=== PATIENT | female | born 1965 | race Caucasian/White ===

== ENCOUNTER → 2017-09-27 | Outpatient (CLI) | payer OTHER ==
--- NOTE | 2017-09-27 14:47 | RADIOLOGY REPORT (SQ) ---
EXAM DESCRIPTION: L SPINE FLEX/EXT ONLY COMPLETED DATE/TIME: 09/27/2017 2:20 pm REASON FOR STUDY: RADICULOPATHY, LUMBAR REGION M54.16 RADICULOPATHY, LUMBAR REGION COMPARISON: None. NUMBER OF VIEWS: Two view. TECHNIQUE: Lateral views of the lumbar spine with flexion and extension. LIMITATIONS: None. FINDINGS: MINERALIZATION: Normal. SEGMENTATION: Normal. No transitional anatomy. ALIGNMENT: Grade 1 anterolisthesis of L 3 on L4. FLEXION/EXTENSION: No instability. VERTEBRAE: Maintained height. No fracture or worrisome bone lesion. DISCS: Mild disc space narrowing primarily at L3-L4 and L4-L5. POSTERIOR ELEMENTS: Pedicles and facets are intact. No pars defect or posterior arch defects. HARDWARE: Posterior hardware at L4-L5. OTHER: No other significant finding. IMPRESSION: MILD GRADE 1 ANTEROLISTHESIS OF L3 ON L4. MILD DISC SPACE NARROWING. NO INSTABILITY ON FLEXION/EXTENSION. TECHNICAL DOCUMENTATION: JOB ID: [id number] [email or web address] [email or web address]- All Rights Reserved
--- NOTE | 2017-09-27 18:35 | RADIOLOGY REPORT (SQ) ---
EXAM DESCRIPTION: MRI LUMBAR SPINE COMBO COMPLETED DATE/TIME: 09/27/2017 3:17 pm REASON FOR STUDY: RADICULOPATHY, LUMBAR REGION M54.16 RADICULOPATHY, LUMBAR REGION COMPARISON: 09/27/2017 TECHNIQUE: Sagittal and Axial imaging includes T1, T1 post gadolinium, T2, STIR and gradient echo se quences. Coronal T2/HASTE imaging. CONTRAST TYPE AND DOSE: 15 mL Multihance. RENAL FUNCTION: GFR > 60. LIMITATIONS: None. FINDINGS: VISUALIZED UPPER ABDOMEN: Limited evaluation. No acute or suspicious findings suggested. SEGMENTATION: No transitional anatomy. The lowest well-developed disc space is labeled L5-S1. ALIGNMENT: Minimal anterolisthesis of L3 on L4. VERTEBRAE: Intact. No fractures. BONE MARROW: Normal. No marrow replacement or reactive changes. DISC SIGNAL: Loss of height and T2 signal L4-5. Loss of height at L3-4. POSTERIOR ELEMENTS: No pars defects. HARDWARE: Pedicle screws at L4 and L5 bilateral. CORD AND CONUS: Normal in size and signal intensity. Conus at the appropriate level. SOFT TISSUES: No aortic aneurysm seen. No bulky retroperitoneal adenopathy or mass. No paraspinal mas s or fluid. L1-L2: No significant spinal stenosis or exit foraminal stenosis. L2-L3: No significant spinal stenosis or exit foraminal stenosis. L3-L4: Mild disc bulge asymmetric right with fissure. . Facet arthropathy. Fluid in the facets. M oderate narrowing of the right exit foramina and mild narrowing of the left exit foramina. L4-L5: Pedicle screws. Posterior decompression. No spinal stenosis or exit foraminal stenosis. L5-S1: No significant spinal stenosis or exit foraminal stenosis. Marked facet hypertrophy. LOWER THORACIC: Incompletely imaged. No stenosis seen. SACRUM: Visualized upper sacrum intact. ENHANCEMENT: No abnormal enhancement. OTHER: No other significant findings. IMPRESSION: L3-4 with mild anterolisthesis, asymmetric rightward disc bulge and facet arthropathy al l results in moderate narrowing of the right exit foramina and mild narrowing of the left exit forami na. Surgical changes L4-5. TECHNICAL DOCUMENTATION: JOB ID: [id number] [email or web address]- All Rights Reserved
== END ==
LOC: RAD 13:55
PROVIDERS: ATTEND Neurological Surgery
DX: M54.16 Radiculopathy, lumbar region (principal)
CPT/HCPCS: 82565; 72158; 72120; A9577

== ENCOUNTER → 2019-01-16 | Outpatient (CLI) | payer OTHER ==
--- NOTE | 2019-01-16 10:45 | RADIOLOGY REPORT (SQ) ---
EXAM DESCRIPTION: HIP BILATERAL; L SPINE W/FLEX/EXT COMPLETED DATE/TIME: 01/16/2019 10:26 am REASON FOR STUDY: (M54.5)LOW BACK PAIN; (M54.5)LOW BACK PAIN;(M54.16)RADICULOPATHY, LUMBAR REGION COMPARISON: 2018 FINDINGS: 7 view lumbar spine including upright flexion-extension lateral: Mild grade 1 listhesis L 3-4. No abnormal motion on flexion-extension imaging. Dorsal decompression with instrumentation which looks intact spanning L4-5. No fracture or worrisome bone lesion. Bilateral hips: Three views to include AP pelvis and frog lateral individual hip views. Hips are relatively maintained. No fracture or bone lesion. TECHNICAL DOCUMENTATION: JOB ID: [id number] Reading location - IP/workstation name: [email or web address]
--- NOTE | 2019-01-16 10:45 | RADIOLOGY REPORT (SQ) ---
EXAM DESCRIPTION: HIP BILATERAL; L SPINE W/FLEX/EXT COMPLETED DATE/TIME: 01/16/2019 10:26 am REASON FOR STUDY: (M54.5)LOW BACK PAIN; (M54.5)LOW BACK PAIN;(M54.16)RADICULOPATHY, LUMBAR REGION COMPARISON: 2018 FINDINGS: 7 view lumbar spine including upright flexion-extension lateral: Mild grade 1 listhesis L 3-4. No abnormal motion on flexion-extension imaging. Dorsal decompression with instrumentation which looks intact spanning L4-5. No fracture or worrisome bone lesion. Bilateral hips: Three views to include AP pelvis and frog lateral individual hip views. Hips are relatively maintained. No fracture or bone lesion. TECHNICAL DOCUMENTATION: JOB ID: [id number] Reading location - IP/workstation name: [email or web address]
== END ==
LOC: RAD 09:07
PROVIDERS: ATTEND Neurological Surgery
DX: M54.5 Low back pain (principal); M54.16 Radiculopathy, lumbar region
CPT/HCPCS: 72114; 73522